=== PATIENT | female | born 1985 | race African-American/Black ===

== ENCOUNTER 2019-09-09 09:30 | Emergency (ER) | payer OTHER ==
[~2019-09-09] VITALS: Ht 157.5 cm; Wt 63.5 kg
[2019-09-09] MEDS ORDERED: KEFLEX500 M1 PO (10:45)
[2019-09-09] MEDS ORDERED: BACTRIM DS TAB1 EACH PO (10:45)
[2019-09-09 10:56] VITALS: BP 94/57
== END 2019-09-09 10:56 | disposition home or self-care (01) ==
LOC: ER 09:30
DX: L02.415 Cutaneous abscess of right lower limb (principal)